=== PATIENT | female | born 1940 | race Caucasian/White ===

== ENCOUNTER 2017-04-16 07:14 | Inpatient (IN) | payer MEDICARE ==
[~2017-04-16] VITALS: Ht 175.3 cm; Wt 89.2 kg
[2017-04-16] MEDS ORDERED: DILTIAZEM 125 MG in DEXTROSE 5% 100 ML IV SCH (07:47)
[2017-04-16] MEDS ORDERED: SODIUM CHLORIDE 0.9% 1,000 ML IV ONE (07:47)
[2017-04-16] MEDS ORDERED: SODIUM CHLORIDE 0.9% 1,000ML IVBOLUS ONE (08:00)
[2017-04-16] MEDS ORDERED: DILTIAZEM 5 MG/ML, 5ML IV ONE (08:00)
[2017-04-16] MEDS ORDERED: ASPIRIN 81 MG TABLET CHEW PO ONE (08:00)
[2017-04-16 08:09] LABS: HEMATOCRIT 43.5 % (34.6-47.8); HEMOGLOBIN 14.5 g/dL (11.7-16.4); WHITE BLOOD COUNT 5.6 x10^3/uL (3.4-10)
[2017-04-16] MEDS ORDERED: ASPIRIN 81 MG TABLET CHEW ONE (08:14)
[2017-04-16 08:21] LABS: ASPARTATE AMINO TRANSFERASE 19 U/L (15-37); BLOOD UREA NITROGEN 12 mg/dL (7-18)
[2017-04-16 08:26] LABS: IS PT STATUS REG ER OR PRE ER? YES
[2017-04-16] MEDS ORDERED: DILTIAZEM 5 MG/ML, 5ML ONE (08:40)
[2017-04-16] MEDS ORDERED: ONDANSETRON ODT 4 MG PO PRN (10:00)
[2017-04-16] MEDS ORDERED: Enoxaparin 1 mg/kg protocol SQ SCH (10:00)
[2017-04-16] MEDS: SODIUM CHLORIDE FLUSH 10ML SYR IVF SCH ×2 (10:00→20:36)
[2017-04-16] MEDS ORDERED: ENOXAPARIN 80 MG/0.8 ML SQ ONE (12:00)
[2017-04-16] MEDS ORDERED: FLU VACC QS2017-18 (36MOS+) UP/PF 0.5 ML IM-VACC ONE (13:30)
[2017-04-16] MEDS ORDERED: PNEUMOCOCCAL 23 VACCINE IM-VACC ONE (13:30)
[2017-04-16] MEDS: ACETAMINOPHEN 325 MG TABLET PO PRN ×2 (13:50→20:42)
[2017-04-16 14:34] LABS: IS PT STATUS REG ER OR PRE ER? NO
[2017-04-16 14:42] VITALS: BP 122/82
[2017-04-16 19:58] LABS: IS PT STATUS REG ER OR PRE ER? NO
[2017-04-16 20:00] VITALS: BP 118/82
[2017-04-16] MEDS ORDERED: DILTIAZEM 125 MG in SODIUM CHLORIDE 0.9% 100 ML IV PRN (20:00)
[2017-04-16] MEDS: ENOXAPARIN 80 MG/0.8 ML SQ SCH (20:36)
[2017-04-17 01:48] VITALS: BP 142/82
[2017-04-17] MEDS: ACETAMINOPHEN 325 MG TABLET PO PRN ×2 (04:38→07:51)
[2017-04-17] MEDS: SODIUM CHLORIDE FLUSH 10ML SYR IVF SCH (07:37)
[2017-04-17] MEDS: ENOXAPARIN 80 MG/0.8 ML SQ SCH (07:37)
[2017-04-17 08:18] VITALS: BP 121/80
[2017-04-17] MEDS: DILTIAZEM 120 MG CAP.ER.12H PO SCH ×2 (10:13→19:51)
[2017-04-17 14:22] VITALS: BP 141/80
[2017-04-17] MEDS ORDERED: ASPI-515 PO (19:02)
[2017-04-17] MEDS ORDERED: DILT120C11 PO (19:02)
[2017-04-17 19:24] VITALS: BP 137/80
== END 2017-04-17 20:07 | disposition home or self-care (01) | DRG 310 ==
LOC: ED 09:03 → EDIP 09:40 → 5SO 10:37
PROVIDERS: ADMIT Internal Medicine; ATTEND Internal Medicine
DX: I48.91 Unspecified atrial fibrillation (principal); I10 Essential (primary) hypertension; E66.9 Obesity, unspecified; Z68.29 Body mass index [BMI] 29.0-29.9, adult; Z87.891 Personal history of nicotine dependence; Z79.82 Long term (current) use of aspirin; Z88.5 Allergy status to narcotic agent
CPT/HCPCS: 36415; 71010; 80053; 83880; 84436; 84443; 84484; 85025; 85610; 90686; 90732; 93005; 93306; 96361; 96374; J1650; J7030

== ENCOUNTER → 2017-06-17 | Outpatient (CLI) | payer MEDICARE ==
[~2017-06-17] MED LIST: ASPI-515 PO; DILT120C11 PO; REGADENOSON 0.4 MG/5 ML SYRINGE ONE
== END | disposition home or self-care (01) ==
LOC: RAD 08:24
PROVIDERS: ATTEND Physician Assistant
DX: R06.00 Dyspnea, unspecified (principal)
CPT/HCPCS: 78452; 93017; A9502; J2785

== ENCOUNTER 2017-06-23 09:42 | Day surgery (SDC) | payer MEDICARE ==
[~2017-06-23] VITALS: Ht 175.3 cm; Wt 86.4 kg
[~2017-06-23 09:42] MED LIST changes: -REGADENOSON 0.4 MG/5 ML SYRINGE ONE
[2017-06-23] MEDS ORDERED: HYDR-3237 PO (10:09)
[2017-06-23] MEDS ORDERED: DILT120T3 PO (10:11)
[2017-06-23] MEDS ORDERED: METO25TA2 PO (10:11)
[2017-06-23] MEDS ORDERED: RIVA20TA PO (10:11)
[2017-06-23 10:13] VITALS: BP 128/73
[2017-06-23 10:47] LABS: ASPARTATE AMINO TRANSFERASE 24 U/L (15-37); BLOOD UREA NITROGEN 20 mg/dL (7-18)
[2017-06-23] MEDS ORDERED: PROPOFOL 10 MG/ML, 20ML ONE (12:45)
== END 2017-06-23 14:49 | disposition home or self-care (01) ==
LOC: CACL 09:42
PROVIDERS: ATTEND Internal Medicine Cardiovascular Disease
DX: I48.91 Unspecified atrial fibrillation (principal); Z88.5 Allergy status to narcotic agent
CPT/HCPCS: 36415; 80053; 92960; J2704

== ENCOUNTER 2017-07-09 07:53 | Inpatient (IN) | payer MEDICARE ==
[~2017-07-09] VITALS: Ht 175.3 cm; Wt 92.5 kg
[~2017-07-09 07:53] MED LIST changes: +DILT120T3 PO; +HYDR-3237 PO; +METO25TA2 PO; +RIVA20TA PO
[2017-07-09 10:43] VITALS: BP 141/87
[2017-07-09] MEDS ORDERED: LORA-702 PO (10:47)
[2017-07-09] MEDS ORDERED: BISACODYL 10 MG SUPP PR PRN (12:00)
[2017-07-09] MEDS ORDERED: ONDANSETRON 2MG/ML, 2ML IV PRN (12:00)
[2017-07-09] MEDS ORDERED: ACETAMINOPHEN 325 MG TABLET PO PRN (12:00)
[2017-07-09 12:19] LABS: CHLORIDE 109 mmol/L (98-107)
[2017-07-09 12:20] LABS: ANION GAP 9 mmol/L (5-15); CALCIUM 8.5 mg/dL (8.5-10.1); CHOLESTEROL, TOTAL 171 mg/dL (140-239); CREATININE 0.59 mg/dL (0.55-1.02); TRIGLYCERIDES 69 mg/dL (50-200); VLDL CHOLESTEROL 14 mg/dL (0-25)
[2017-07-09 12:24] LABS: CHOL/HDL RATIO 2.6; FREE T4 (FREE THYROXINE) 0.97 ng/dL (0.76-1.46); HDL CHOL % 39 % (28-40); HDL CHOLESTEROL (DIRECT) 67 mg/dL (40-60); LDL CHOLESTEROL,CALCULATED 90 mg/dL (54-169); LDL/HDL RATIO 1.3 (0.5-3.0); TROPONIN I < 0.015 ng/mL (0.000-0.045)
[2017-07-09 15:17] VITALS: BP 142/96
[2017-07-09] MEDS: RIVAROXABAN 20 MG TABLET PO SCH (16:53)
[2017-07-09 17:21] LABS: TROPONIN I < 0.015 ng/mL (0.000-0.045)
[2017-07-09 19:09] VITALS: BP 146/91
[2017-07-09] MEDS: SODIUM CHLORIDE FLUSH 10ML SYR IVF SCH (20:21)
[2017-07-09] MEDS: SOTALOL 80MG TABLET PO SCH (20:21)
[2017-07-09] MEDS: BISACODYL 5 MG EC TABLET PO PRN (20:27)
[2017-07-09] MEDS ORDERED: ZOLPIDEM 5MG TABLET PO PRN (21:00)
[2017-07-09 23:55] LABS: TROPONIN I < 0.015 ng/mL (0.000-0.045)
[2017-07-10 04:30] VITALS: BP 113/78
[2017-07-10] MEDS: SOTALOL 80MG TABLET PO SCH ×2 (08:53→21:27)
[2017-07-10] MEDS: SODIUM CHLORIDE FLUSH 10ML SYR IVF SCH ×2 (08:54→21:27)
[2017-07-10 09:00] VITALS: BP 142/94
[2017-07-10 13:15] VITALS: BP 125/87
[2017-07-10] MEDS: RIVAROXABAN 20 MG TABLET PO SCH (16:59)
[2017-07-10] MEDS: BISACODYL 5 MG EC TABLET PO PRN (18:11)
[2017-07-10 20:33] VITALS: BP 131/90
[2017-07-11 01:30] VITALS: BP 128/82
[2017-07-11] MEDS: SOTALOL 80MG TABLET PO SCH (08:10)
[2017-07-11] MEDS: SODIUM CHLORIDE FLUSH 10ML SYR IVF SCH (08:10)
[2017-07-11 08:41] VITALS: BP 127/92
[2017-07-11] MEDS ORDERED: SOTA80TA18 PO (11:43)
[2017-07-11 12:30] VITALS: BP 125/80
== END 2017-07-11 13:32 | disposition home or self-care (01) | DRG 309 ==
LOC: 5SO 09:37 → DCLOUNGE 07-11 13:32
PROVIDERS: ADMIT Internal Medicine Cardiovascular Disease; ATTEND Internal Medicine Cardiovascular Disease
PROC: 5A2204Z Restoration of Cardiac Rhythm, Single (ICD-10-PCS; principal; 2017-07-09)
DX: I48.91 Unspecified atrial fibrillation (principal); D68.69 Other thrombophilia; I34.0 Nonrheumatic mitral (valve) insufficiency; Z87.891 Personal history of nicotine dependence
CPT/HCPCS: 36415; 71020; 80048; 80061; 84439; 84443; 84484; 85014; 85018; 92960; 93005

== ENCOUNTER → 2020-08-16 | Outpatient (CLI) | payer MEDICARE ==
[~2020-08-16] MED LIST changes: -ASPI-515 PO; +ASPI-963 PO; +LORA-702 PO; +SOTA80TA18 PO
== END | disposition home or self-care (01) ==
LOC: CFH 08:52
PROVIDERS: ATTEND Specialist
DX: E78.00 Pure hypercholesterolemia, unspecified (principal); Z82.49 Family history of ischemic heart disease and other diseases of the circulatory system
CPT/HCPCS: 82565